=== PATIENT | male | born 1955 | race Caucasian/White ===

== ENCOUNTER 2023-08-04 14:35 | Emergency (ER) | payer OTHER ==
[~2023-08-04] VITALS: Ht 175.3 cm; Wt 67.4 kg
--- OUTSIDE RECORDS SUMMARY | 2023-08-04 15:36 | XMS ---
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 Ramiro has no Care Guidelines for this patient. Monica VISIT COUNT (12 MO.) 15 [facility] Ashley Aleman ([place]) [facility] TOTAL 16 NOTE: Visits indicate total known visits. ED/UCC VISIT TRACKING (12 MO.) 08/04/2023 14:[facility] COMPLAINT: - LEG PAIN [facility] DIAGNOSES: - Constipation, unspecified - Abdominal Pain 07/22/2023 10:21 [facility] Bharathi VELÁZQUEZ (Bharathi Garvin) TYPE: Emergency DIAGNOSES: - Constipation, unspecified - Gas pain - Presence of other specified devices - Abdominal Pain - Mental Health Problem 07/21/2023 15:00 [facility] Bharathi VELÁZQUEZ (Bharathi Garvin) TYPE: Emergency DIAGNOSES: - Disorientation, unspecified - Mental Health Evaluation - poss bladder issues 07/18/2023 20:56 [facility] Bharathi Garvin MELANIA (Bharathi Garvin) TYPE: Emergency DIAGNOSES: - Hypokalemia - Unspecified abdominal pain - Abdominal Pain 07/18/2023 11:59 [facility] Bharathi Garvin MELANIA (Bharathi Garvin) TYPE: Emergency DIAGNOSES: - Candidiasis of skin and nail - bladder infection, throat numbness - Numbness - Penis Pain 07/14/2023 12:51 [facility] [place] (Bharathi Garvin) TYPE: Emergency DIAGNOSES: - Nausea with vomiting, unspecified - Emesis - nausea 07/14/2023 08:22 [facility] [place] (Bharathi Garvin) TYPE: Emergency DIAGNOSES: - Vomiting, unspecified - Emesis - Nausea - Overdose (Accidental) - vomiting 07/14/2023 02:21 [facility] Bharathi VELÁZQUEZ ([place]) TYPE: Emergency DIAGNOSES: - Bacterial infection, unspecified - Urinary tract infection, site not specified - Medical Problem (Minor) - medication issue 07/11/2023 17:19 [facility] Bharathi VELÁZQUEZ ([place]) TYPE: Emergency DIAGNOSES: - Infection and inflammatory reaction due to indwelling urethral catheter, initial encounter - Retention of urine, unspecified - Urinary tract infection, site not specified - catheter issues - Urinary Retention 07/10/2023 11:18 [facility] Bharathi VELÁZQUEZ ([place]) TYPE: Emergency DIAGNOSES: - Encounter for fitting and adjustment of urinary device - Unspecified abdominal pain - Abdominal Pain - [facility] 06/19/2023 15:55 [facility] Bharathi VELÁZQUEZ (Bharathi Garvin) TYPE: Emergency DIAGNOSES: - Other retention of urine - Presence of other specified devices - Vesical tenesmus - pain, catheter issue - Urinary Catheter Problem 06/18/2023 10:29 [facility] Bharathi Garvin MELANIA (Bharathi Garvin) TYPE: Emergency DIAGNOSES: - Unspecified complication of genitourinary prosthetic device, implant and graft, initial encounter - poss infection/ uniary issue - Urinary Complaint 06/16/2023 13:48 [facility] [place] MELANIA ([place]) TYPE: Emergency DIAGNOSES: - Disease of intestine, unspecified - Post-traumatic stress disorder, unspecified - Retention of urine, unspecified - abnormal imaging - Medical Problem (Minor) - Medication Refill 03/18/2023 09:48 [facility] [place] (Bharathi Garvin) TYPE: Emergency DIAGNOSES: - Disorder of the skin and subcutaneous tissue, unspecified - Rash - shingles? 10/04[facility]2022 22:[facility]Bharathi Garvin[facility] TYPE: Emergency DIAGNOSES: - Disorder of the skin and subcutaneous tissue, unspecified - Neck Pain - poss growth on neck INPATIENT VISIT TRACKING (12 MO.) No inpatient visits to display in this time frame [email or web address]
[2023-08-04 15:50] VITALS: BP 142/72
== END 2023-08-04 15:51 | disposition home or self-care (01) ==
LOC: ED 14:35
DX: R33.9 Retention of urine, unspecified (principal); Z96.0 Presence of urogenital implants; Z88.8 Allergy status to other drugs, medicaments and biological substances
CPT/HCPCS: 99283